=== PATIENT | male | born 1960 | race Two or more races ===

== ENCOUNTER 2016-11-05 08:24 | Inpatient (IN) | payer MEDICARE ==
[~2016-11-05] VITALS: Ht 165.1 cm; Wt 77.5 kg
[~2016-11-05 08:24] MED LIST: ATOR40TA78 PO; CARV-39 PO; COLC1TAB PO; GEMF600T3 PO; GLIM1TAB PO; LISI-170 PO; METF10002 PO
[2016-11-05] MEDS ORDERED: CIPR500T87 PO (09:16)
[2016-11-05] MEDS ORDERED: AMOX1TAB64 PO (09:16)
[2016-11-05] MEDS ORDERED: HYDR-3240 PO (09:17)
[2016-11-05] MEDS ORDERED: SODIUM CHLORIDE 0.9% 1,000 ML IV ONE (09:34)
[2016-11-05] MEDS ORDERED: SODIUM CHLORIDE FLUSH 10ML SYR IVF ONE (10:00)
[2016-11-05] MEDS ORDERED: ONDANSETRON 2MG/ML, 2ML IVPush ONE (10:00)
[2016-11-05] MEDS ORDERED: ONDANSETRON 2MG/ML, 2ML ONE ×2 (10:01→10:17)
[2016-11-05] MEDS ORDERED: HYDROmorphone 1 MG/ML, 1ML ONE ×2 (10:04→12:38)
[2016-11-05] MEDS: HYDROmorphone 1 MG/ML, 1ML IVPush PRN ×2 (10:07→12:44)
[2016-11-05 10:30] LABS: BLOOD UREA NITROGEN 37 mg/dL (7-18)
[2016-11-05 10:53] LABS: DIFF TOTAL CELLS COUNTED 100 CELL DIFF
[2016-11-05 10:54] LABS: VERIFY COUNTS? YES
[2016-11-05] MEDS ORDERED: CEFOTETAN PMX 1GM/50ML 50 ML ONE (12:10)
[2016-11-05] MEDS ORDERED: CEFOTETAN PMX 1GM/50ML 50 ML IV ONE (12:30)
[2016-11-05] MEDS ORDERED: TEMAZEPAM 15 MG CAPSULE PO PRN (14:00)
[2016-11-05] MEDS ORDERED: HYDROcodone/APAP 5/325 TABLET PO PRN (14:00)
[2016-11-05] MEDS ORDERED: ONDANSETRON 2MG/ML, 2ML IVPush PRN (14:00)
[2016-11-05] MEDS ORDERED: hydrALAzine 20 MG/ML, 1ML IVPush PRN (14:00)
[2016-11-05] MEDS ORDERED: CEFTAROLINE 600 MG in SODIUM CHLORIDE 0.9% 100 ML IV ONE (14:00)
[2016-11-05 14:27] VITALS: BP 142/79
[2016-11-05 14:51] VITALS: BP 142/79
[2016-11-05] MEDS: SODIUM CHLORIDE 0.9% 1,000 ML IV SCH (15:55)
[2016-11-05] MEDS: CLINDAMYCIN PMX 600MG/50ML 50 ML IV SCH ×2 (15:55→22:04)
[2016-11-05] MEDS: LACTOBACILLUS 1GM/ PACKET PO SCH ×2 (16:00→19:59)
[2016-11-05] MEDS: INSULIN ASPART 100 UNITS/ML, PEN SQ-INSULIN SCH ×2 (16:30→20:28)
[2016-11-05] MEDS: morphine SULFATE 10 MG/ML, 1ML IVPush PRN ×2 (16:53→17:14)
[2016-11-05] MEDS: CEFTAROLINE 400 MG in SODIUM CHLORIDE 0.9% 100 ML IV SCH (17:15)
[2016-11-05] MEDS: METOPROLOL TARTRATE 25 MG TABLET PO SCH (18:00)
[2016-11-05 19:37] VITALS: BP 129/81
[2016-11-05] MEDS: INSULIN DETEMIR 100 UNITS/ML, PEN SQ-INSULIN SCH (20:22)
[2016-11-06] MEDS: METRONIDAZOLE PMX 500MG/100ML 100 ML IVPB SCH ×4 (00:56→23:50)
[2016-11-06 00:59] VITALS: BP 115/62
[2016-11-06] MEDS: METOPROLOL TARTRATE 25 MG TABLET PO SCH ×3 (05:07→22:29)
[2016-11-06] MEDS: LACTOBACILLUS 1GM/ PACKET PO SCH ×4 (05:07→21:00)
[2016-11-06] MEDS: CEFTAROLINE 400 MG in SODIUM CHLORIDE 0.9% 100 ML IV SCH (05:18)
[2016-11-06] MEDS: morphine SULFATE 10 MG/ML, 1ML IVPush PRN (05:41)
[2016-11-06 06:01] LABS: ASPARTATE AMINO TRANSFERASE 21 U/L (15-37); BLOOD UREA NITROGEN 28 mg/dL (7-18)
[2016-11-06] MEDS: CLINDAMYCIN PMX 600MG/50ML 50 ML IV SCH ×3 (06:29→22:27)
[2016-11-06 06:31] VITALS: BP 125/79
[2016-11-06] MEDS: INSULIN ASPART 100 UNITS/ML, PEN SQ-INSULIN SCH ×4 (07:00→22:28)
[2016-11-06] MEDS: SODIUM CHLORIDE 0.9% 1,000 ML IV SCH ×2 (08:00→21:20)
[2016-11-06 13:08] VITALS: BP 139/83
[2016-11-06] MEDS ORDERED: FENTANYL PF 250 MCG/5ML ONE ×3 (14:11→14:58)
[2016-11-06] MEDS ORDERED: MIDAZOLAM 1 MG/ML, 2ML ONE ×3 (14:11→14:58)
[2016-11-06] MEDS ORDERED: BUPIVACAINE LIPOSOME/PF INFIL ONE (15:10)
[2016-11-06] MEDS ORDERED: POTASSIUM PHOSPHATE 22 MEQ in SODIUM CHLORIDE 0.9% 500 ML IV ONE (15:30)
[2016-11-06] MEDS ORDERED: PROPOFOL 10 MG/ML, 20ML ONE (15:48)
[2016-11-06] MEDS ORDERED: SUCCINYLCHOLINE 20 MG/ML, 10ML ONE (15:48)
[2016-11-06] MEDS ORDERED: ACETAMINOPHEN 325 MG TABLET PO PRN (17:00)
[2016-11-06] MEDS ORDERED: hydrALAzine 20 MG/ML, 1ML IV PRN (17:00)
[2016-11-06] MEDS ORDERED: ONDANSETRON 2MG/ML, 2ML IVPush PRN (17:00)
[2016-11-06] MEDS ORDERED: PROMETHAZINE 25 MG/ML, 1ML IV PRN (17:00)
[2016-11-06] MEDS ORDERED: MEPERIDINE/PF 25MG/0.5ML IVPush PRN (17:00)
[2016-11-06] MEDS ORDERED: LABETALOL 5MG/ML, 20ML IV PRN (17:00)
[2016-11-06] MEDS ORDERED: FENTANYL PF 100 MCG/2ML IV PRN (17:00)
[2016-11-06] MEDS: CEFTAROLINE 600 MG in SODIUM CHLORIDE 0.9% 100 ML IV SCH (17:00)
[2016-11-06] MEDS ORDERED: HYDROmorphone 1 MG/ML, 1ML IV PRN (17:00)
[2016-11-06] MEDS ORDERED: ACETAMINOPHEN 325 MG TABLET ONE (17:17)
[2016-11-06] MEDS ORDERED: FENTANYL PF 100 MCG/2ML ONE (17:17)
[2016-11-06] MEDS ORDERED: ACETAMINOPHEN 650 MG/20.3 ML UDC ONE (17:17)
[2016-11-06] MEDS ORDERED: OXYcodone 5 MG/5 ML ORAL.SOL UDC ONE (17:17)
[2016-11-06] MEDS: OXYcodone 5 MG/5 ML ORAL.SOL UDC PO PRN (17:20)
[2016-11-06] MEDS ORDERED: hydrALAzine 20 MG/ML, 1ML ONE (17:43)
[2016-11-06] MEDS: INSULIN REGULAR 100 UNITS/ML, 3ML VIAL SQ-INSULIN SCH (21:00)
[2016-11-06 22:00] VITALS: BP 138/91
[2016-11-06] MEDS: INSULIN DETEMIR 100 UNITS/ML, PEN SQ-INSULIN SCH (22:27)
[2016-11-06] MEDS: TAMSULOSIN 0.4 MG CAP.ER.24H PO SCH (22:29)
[2016-11-07 00:08] VITALS: BP 137/77
[2016-11-07 03:49] VITALS: BP 138/77
[2016-11-07] MEDS: LACTOBACILLUS 1GM/ PACKET PO SCH ×4 (05:20→20:33)
[2016-11-07] MEDS: METOPROLOL TARTRATE 25 MG TABLET PO SCH ×2 (05:20→17:24)
[2016-11-07] MEDS: CEFTAROLINE 600 MG in SODIUM CHLORIDE 0.9% 100 ML IV SCH ×2 (05:20→17:24)
[2016-11-07 05:27] LABS: BLOOD UREA NITROGEN 20 mg/dL (7-18)
[2016-11-07] MEDS: CLINDAMYCIN PMX 600MG/50ML 50 ML IV SCH ×3 (06:50→22:07)
[2016-11-07 06:51] VITALS: BP 136/73
[2016-11-07] MEDS: INSULIN REGULAR 100 UNITS/ML, 3ML VIAL SQ-INSULIN SCH ×4 (07:00→21:00)
[2016-11-07] MEDS: INSULIN ASPART 100 UNITS/ML, PEN SQ-INSULIN SCH ×4 (07:48→21:02)
[2016-11-07] MEDS: METRONIDAZOLE PMX 500MG/100ML 100 ML IVPB SCH ×2 (07:49→16:08)
[2016-11-07] MEDS: TAMSULOSIN 0.4 MG CAP.ER.24H PO SCH (07:49)
[2016-11-07] MEDS ORDERED: POTASSIUM PHOSPHATE 44 MEQ in SODIUM CHLORIDE 0.9% 500 ML IV ONE (09:30)
[2016-11-07] MEDS: INSULIN DETEMIR 100 UNITS/ML, PEN SQ-INSULIN SCH ×2 (09:43→21:01)
[2016-11-07] MEDS: LISINOPRIL 5 MG TABLET PO SCH ×2 (09:43→20:33)
[2016-11-07 13:45] VITALS: BP 119/64
[2016-11-07 13:52] LABS: HIV 1&2 ANTIBODY SCREEN Nonreactive (Nonreactive); HIV-1 p24 ANTIGEN Nonreactive (Nonreactive)
[2016-11-07 19:24] VITALS: BP 125/68
[2016-11-07] MEDS: SODIUM CHLORIDE 0.9% 1,000 ML IV SCH (21:30)
[2016-11-08 00:25] VITALS: BP 121/66
[2016-11-08] MEDS: METRONIDAZOLE PMX 500MG/100ML 100 ML IVPB SCH ×4 (00:34→23:55)
[2016-11-08 04:35] VITALS: BP 123/72
[2016-11-08] MEDS: CEFTAROLINE 600 MG in SODIUM CHLORIDE 0.9% 100 ML IV SCH ×2 (04:41→16:56)
[2016-11-08 05:54] LABS: ASPARTATE AMINO TRANSFERASE 26 U/L (15-37); BLOOD UREA NITROGEN 10 mg/dL (7-18)
[2016-11-08] MEDS: LACTOBACILLUS 1GM/ PACKET PO SCH ×4 (06:39→21:08)
[2016-11-08] MEDS: CLINDAMYCIN PMX 600MG/50ML 50 ML IV SCH (06:39)
[2016-11-08] MEDS: METOPROLOL TARTRATE 25 MG TABLET PO SCH ×2 (06:40→18:10)
[2016-11-08 06:45] LABS: DIFF TOTAL CELLS COUNTED 100 CELL DIFF
[2016-11-08 06:49] LABS: VERIFY COUNTS? YES
[2016-11-08] MEDS: INSULIN ASPART 100 UNITS/ML, PEN SQ-INSULIN SCH (06:55)
[2016-11-08] MEDS: INSULIN REGULAR 100 UNITS/ML, 3ML VIAL SQ-INSULIN SCH ×4 (06:55→21:27)
[2016-11-08 07:33] VITALS: BP 136/76
[2016-11-08] MEDS: TAMSULOSIN 0.4 MG CAP.ER.24H PO SCH (08:25)
[2016-11-08] MEDS: LISINOPRIL 5 MG TABLET PO SCH (08:25)
[2016-11-08] MEDS: INSULIN DETEMIR 100 UNITS/ML, PEN SQ-INSULIN SCH ×2 (08:26→21:27)
[2016-11-08] MEDS: SODIUM CHLORIDE 0.9% 1,000 ML IV SCH (10:40)
[2016-11-08 12:57] VITALS: BP 156/80
[2016-11-08] MEDS ORDERED: MAGNESIUM SULFATE PMX 2GM/50ML 50 ML IV ONE (16:30)
[2016-11-08 19:35] VITALS: BP 131/73
[2016-11-08] MEDS: LISINOPRIL 20 MG TABLET PO SCH (21:08)
[2016-11-09 02:12] VITALS: BP 142/85
[2016-11-09] MEDS: CEFTAROLINE 600 MG in SODIUM CHLORIDE 0.9% 100 ML IV SCH (05:34)
[2016-11-09] MEDS: SODIUM CHLORIDE 0.9% 1,000 ML IV SCH ×3 (05:34→22:22)
[2016-11-09] MEDS: INSULIN REGULAR 100 UNITS/ML, 3ML VIAL SQ-INSULIN SCH ×4 (05:47→22:23)
[2016-11-09] MEDS: LACTOBACILLUS 1GM/ PACKET PO SCH ×4 (06:30→22:08)
[2016-11-09] MEDS: METOPROLOL TARTRATE 25 MG TABLET PO SCH ×2 (06:30→18:07)
[2016-11-09 07:17] VITALS: BP 160/94
[2016-11-09 07:57] VITALS: BP 160/104
[2016-11-09] MEDS: LISINOPRIL 20 MG TABLET PO SCH ×2 (07:57→22:08)
[2016-11-09] MEDS: TAMSULOSIN 0.4 MG CAP.ER.24H PO SCH (07:57)
[2016-11-09] MEDS: METRONIDAZOLE PMX 500MG/100ML 100 ML IVPB SCH ×2 (07:57→16:21)
[2016-11-09] MEDS: INSULIN DETEMIR 100 UNITS/ML, PEN SQ-INSULIN SCH ×2 (07:57→22:22)
[2016-11-09] MEDS ORDERED: DIPHENOXYLATE/ATROPINE TABLET PO SCH (10:00)
[2016-11-09] MEDS: CEFTRIAXONE 2,000 MG in DEXTROSE 5% 50 ML IV SCH (11:06)
[2016-11-09] MEDS: DIPHENOXYLATE/ATROPINE TABLET PO SCH (11:15)
[2016-11-09 13:19] VITALS: BP 143/75
[2016-11-09 19:55] VITALS: BP 144/77
[2016-11-09] MEDS: AMLODIPINE 5 MG TABLET PO SCH (22:08)
[2016-11-10] MEDS: METRONIDAZOLE PMX 500MG/100ML 100 ML IVPB SCH ×3 (00:17→16:20)
[2016-11-10 03:52] VITALS: BP 115/70
[2016-11-10 05:35] LABS: BLOOD UREA NITROGEN 9 mg/dL (7-18)
[2016-11-10 05:47] LABS: ASPARTATE AMINO TRANSFERASE 39 U/L (15-37)
[2016-11-10] MEDS: LACTOBACILLUS 1GM/ PACKET PO SCH ×4 (06:25→20:09)
[2016-11-10] MEDS: METOPROLOL TARTRATE 25 MG TABLET PO SCH ×2 (06:25→17:59)
[2016-11-10] MEDS: INSULIN REGULAR 100 UNITS/ML, 3ML VIAL SQ-INSULIN SCH ×4 (06:28→20:11)
[2016-11-10 07:20] VITALS: BP 136/81
[2016-11-10] MEDS: DIPHENOXYLATE/ATROPINE TABLET PO SCH (09:08)
[2016-11-10] MEDS: TAMSULOSIN 0.4 MG CAP.ER.24H PO SCH (09:08)
[2016-11-10] MEDS: LISINOPRIL 20 MG TABLET PO SCH ×2 (09:08→20:11)
[2016-11-10] MEDS: AMLODIPINE 5 MG TABLET PO SCH ×2 (09:08→20:11)
[2016-11-10] MEDS: INSULIN DETEMIR 100 UNITS/ML, PEN SQ-INSULIN SCH ×2 (09:09→20:10)
[2016-11-10] MEDS: CEFTRIAXONE 2,000 MG in DEXTROSE 5% 50 ML IV SCH (10:26)
[2016-11-10] MEDS ORDERED: POTASSIUM CHLORIDE 40 MEQ in SODIUM CHLORIDE 0.9% 500 ML IV ONE (11:00)
[2016-11-10 15:01] VITALS: BP 112/66
[2016-11-10 18:53] VITALS: BP 118/73
[2016-11-10] MEDS: SODIUM CHLORIDE 0.9% 1,000 ML IV SCH (20:09)
[2016-11-11] MEDS: METRONIDAZOLE PMX 500MG/100ML 100 ML IVPB SCH ×3 (01:01→16:52)
[2016-11-11 01:58] VITALS: BP 128/75
[2016-11-11 05:23] LABS: BLOOD UREA NITROGEN 12 mg/dL (7-18)
[2016-11-11] MEDS: LACTOBACILLUS 1GM/ PACKET PO SCH ×4 (06:44→21:25)
[2016-11-11] MEDS: METOPROLOL TARTRATE 25 MG TABLET PO SCH ×2 (06:44→18:06)
[2016-11-11] MEDS: INSULIN REGULAR 100 UNITS/ML, 3ML VIAL SQ-INSULIN SCH ×4 (06:46→21:26)
[2016-11-11 07:45] VITALS: BP 127/74
[2016-11-11] MEDS: DIPHENOXYLATE/ATROPINE TABLET PO SCH (08:00)
[2016-11-11] MEDS: TAMSULOSIN 0.4 MG CAP.ER.24H PO SCH (08:00)
[2016-11-11] MEDS: AMLODIPINE 5 MG TABLET PO SCH ×2 (08:01→20:33)
[2016-11-11] MEDS: LISINOPRIL 20 MG TABLET PO SCH ×2 (08:01→21:31)
[2016-11-11] MEDS: INSULIN DETEMIR 100 UNITS/ML, PEN SQ-INSULIN SCH ×2 (08:03→21:26)
[2016-11-11] MEDS: SODIUM CHLORIDE 0.9% 1,000 ML IV SCH (08:04)
[2016-11-11] MEDS: CEFTRIAXONE 2,000 MG in DEXTROSE 5% 50 ML IV SCH (10:48)
[2016-11-11] MEDS ORDERED: MAGNESIUM SULFATE PMX 4GM/100M 100 ML IV ONE (11:00)
[2016-11-11 13:39] VITALS: BP 111/69
[2016-11-11] MEDS: POTASSIUM PHOSPHATE 44 MEQ in SODIUM CHLORIDE 0.9% 500 ML IV ONE ×2 (17:33→18:06)
[2016-11-11 20:00] VITALS: BP 115/71
[2016-11-12] MEDS: METRONIDAZOLE PMX 500MG/100ML 100 ML IVPB SCH ×3 (01:04→17:27)
[2016-11-12 03:28] VITALS: BP 130/74
[2016-11-12 05:13] LABS: BLOOD UREA NITROGEN 14 mg/dL (7-18)
[2016-11-12] MEDS: METOPROLOL TARTRATE 25 MG TABLET PO SCH ×2 (05:26→18:27)
[2016-11-12] MEDS: LACTOBACILLUS 1GM/ PACKET PO SCH ×4 (05:26→21:01)
[2016-11-12] MEDS: INSULIN REGULAR 100 UNITS/ML, 3ML VIAL SQ-INSULIN SCH ×4 (07:00→21:09)
[2016-11-12 07:26] VITALS: BP 131/80
[2016-11-12] MEDS: DIPHENOXYLATE/ATROPINE TABLET PO SCH (08:50)
[2016-11-12] MEDS: TAMSULOSIN 0.4 MG CAP.ER.24H PO SCH (08:50)
[2016-11-12] MEDS: LISINOPRIL 20 MG TABLET PO SCH ×2 (08:51→21:01)
[2016-11-12] MEDS: FINASTERIDE 5 MG TABLET PO SCH (08:51)
[2016-11-12] MEDS: AMLODIPINE 5 MG TABLET PO SCH ×2 (08:51→21:01)
[2016-11-12] MEDS: INSULIN DETEMIR 100 UNITS/ML, PEN SQ-INSULIN SCH ×2 (09:01→21:08)
[2016-11-12] MEDS: SODIUM CHLORIDE 0.9% 1,000 ML IV SCH (09:01)
[2016-11-12] MEDS: CEFTRIAXONE 2,000 MG in DEXTROSE 5% 50 ML IV SCH (10:09)
[2016-11-12 14:00] VITALS: BP 133/79
[2016-11-12 20:00] VITALS: BP 132/82
[2016-11-13] MEDS: METRONIDAZOLE PMX 500MG/100ML 100 ML IVPB SCH ×2 (00:58→09:00)
[2016-11-13 02:07] VITALS: BP 121/77
[2016-11-13] MEDS: SODIUM CHLORIDE 0.9% 1,000 ML IV SCH ×2 (04:43→17:32)
[2016-11-13] MEDS: INSULIN REGULAR 100 UNITS/ML, 3ML VIAL SQ-INSULIN SCH ×4 (06:07→22:05)
[2016-11-13] MEDS: METOPROLOL TARTRATE 25 MG TABLET PO SCH ×2 (06:07→17:37)
[2016-11-13] MEDS: LACTOBACILLUS 1GM/ PACKET PO SCH ×4 (06:07→21:16)
[2016-11-13 06:50] VITALS: BP 130/79
[2016-11-13] MEDS: FINASTERIDE 5 MG TABLET PO SCH (09:22)
[2016-11-13] MEDS: LISINOPRIL 20 MG TABLET PO SCH ×2 (09:22→21:15)
[2016-11-13] MEDS: AMLODIPINE 5 MG TABLET PO SCH ×2 (09:22→21:15)
[2016-11-13] MEDS: TAMSULOSIN 0.4 MG CAP.ER.24H PO SCH (09:22)
[2016-11-13] MEDS: DIPHENOXYLATE/ATROPINE TABLET PO SCH (09:22)
[2016-11-13] MEDS: INSULIN DETEMIR 100 UNITS/ML, PEN SQ-INSULIN SCH ×2 (09:24→22:05)
[2016-11-13] MEDS: metroNIDAZOLE 500 MG TABLET PO SCH ×2 (09:29→17:36)
[2016-11-13] MEDS: CEFTRIAXONE 2,000 MG in DEXTROSE 5% 50 ML IV SCH (10:17)
[2016-11-13 12:40] VITALS: BP 125/79
[2016-11-14 01:21] VITALS: BP 124/79
[2016-11-14] MEDS: metroNIDAZOLE 500 MG TABLET PO SCH ×2 (01:49→07:59)
[2016-11-14] MEDS: LACTOBACILLUS 1GM/ PACKET PO SCH ×2 (05:57→12:27)
[2016-11-14] MEDS: METOPROLOL TARTRATE 25 MG TABLET PO SCH (05:57)
[2016-11-14 06:35] VITALS: BP 142/87
[2016-11-14] MEDS: TAMSULOSIN 0.4 MG CAP.ER.24H PO SCH (07:59)
[2016-11-14] MEDS: AMLODIPINE 5 MG TABLET PO SCH (08:00)
[2016-11-14] MEDS: DIPHENOXYLATE/ATROPINE TABLET PO SCH (08:00)
[2016-11-14] MEDS: FINASTERIDE 5 MG TABLET PO SCH (08:00)
[2016-11-14] MEDS: LISINOPRIL 20 MG TABLET PO SCH (08:00)
[2016-11-14] MEDS: INSULIN REGULAR 100 UNITS/ML, 3ML VIAL SQ-INSULIN SCH ×2 (08:01→12:27)
[2016-11-14] MEDS: INSULIN DETEMIR 100 UNITS/ML, PEN SQ-INSULIN SCH (08:05)
[2016-11-14] MEDS ORDERED: CEFTRIAXONE PMX 2GM/50ML 50 ML IVPB SCH (10:00)
[2016-11-14] MEDS ORDERED: ACID1GRA2 PO (12:49)
[2016-11-14] MEDS ORDERED: AMLO5TAB2 PO (12:49)
[2016-11-14] MEDS ORDERED: LISI-170 PO (12:49)
[2016-11-14] MEDS ORDERED: FINA5TAB4 PO (12:49)
[2016-11-14] MEDS ORDERED: INSU100I28 SQ-INSULIN ×2 (12:49)
[2016-11-14] MEDS ORDERED: TAMS-11 PO (12:49)
[2016-11-14] MEDS ORDERED: METO25TA35 PO (12:49)
[2016-11-14] MEDS ORDERED: TRAM50TA2 PO (12:49)
[2016-11-14] MEDS ORDERED: METR500T PO (12:52)
[2016-11-14] MEDS ORDERED: CEFT1FRO2 IV (12:53)
[2016-11-14 12:55] VITALS: BP 107/63
== END 2016-11-14 14:45 | disposition home or self-care (01) | DRG 853 ==
LOC: ED 09:16 → EDIP 13:03 → SUATTDRO 13:07 → 3NE 14:23 → 4NOR 11-06 18:17 → DCLOUNGE 11-14 14:02
PROVIDERS: ADMIT Internal Medicine; ATTEND Internal Medicine
PROC: 0T9B70Z Drainage of Bladder with Drainage Device, Via Natural or Artificial Opening (ICD-10-PCS; 2016-11-05)
PROC: 0DBP8ZX Excision of Rectum, Via Natural or Artificial Opening Endoscopic, Diagnostic (ICD-10-PCS; 2016-11-06)
PROC: 0D9Q0ZZ Drainage of Anus, Open Approach (ICD-10-PCS; principal; 2016-11-06 16:30)
PROC: 02HV33Z Insertion of Infusion Device into Superior Vena Cava, Percutaneous Approach (ICD-10-PCS; 2016-11-13)
PROC: B5181ZA Fluoroscopy of Superior Vena Cava using Low Osmolar Contrast, Guidance (ICD-10-PCS; 2016-11-13)
DX: A41.9 Sepsis, unspecified organism (principal); E43 Unspecified severe protein-calorie malnutrition; E11.00 Type 2 diabetes mellitus with hyperosmolarity without nonketotic hyperglycemic-hyperosmolar coma (NKHHC); K61.0 Anal abscess; E87.1 Hypo-osmolality and hyponatremia; N13.30 Unspecified hydronephrosis; N17.9 Acute kidney failure, unspecified; I13.0 Hypertensive heart and chronic kidney disease with heart failure and stage 1 through stage 4 chronic kidney disease, or unspecified chronic kidney disease; E87.0 Hyperosmolality and hypernatremia; K50.90 Crohn's disease, unspecified, without complications; K51.90 Ulcerative colitis, unspecified, without complications; K62.89 Other specified diseases of anus and rectum; R65.10 Systemic inflammatory response syndrome (SIRS) of non-infectious origin without acute organ dysfunction; D63.8 Anemia in other chronic diseases classified elsewhere; E11.22 Type 2 diabetes mellitus with diabetic chronic kidney disease; E11.65 Type 2 diabetes mellitus with hyperglycemia; E78.5 Hyperlipidemia, unspecified; E83.42 Hypomagnesemia; E87.6 Hypokalemia; I50.9 Heart failure, unspecified; K76.0 Fatty (change of) liver, not elsewhere classified; M06.9 Rheumatoid arthritis, unspecified; M10.9 Gout, unspecified; B96.1 Klebsiella pneumoniae [K. pneumoniae] as the cause of diseases classified elsewhere; N18.3 Chronic kidney disease, stage 3 (moderate); Z82.49 Family history of ischemic heart disease and other diseases of the circulatory system; Z87.891 Personal history of nicotine dependence; Z88.5 Allergy status to narcotic agent; Z88.8 Allergy status to other drugs, medicaments and biological substances; Z68.24 Body mass index [BMI] 24.0-24.9, adult; Z82.61 Family history of arthritis
CPT/HCPCS: 36415; 36569; 74176; 76770; 76937; 77001; 80048; 80053; 82040; 82962; 83036; 83605; 83735; 84100; 84443; 85025; 85610; 85651; 85730; 86140; 86592; 86703; 87040; 87070; 87075; 87077; 87086; 87106; 87186; 87205; 87252; 87254; 87324; 87491; 87591; 87899; 88304; 93005; 96361; 96365; 96375; 96376; C9290; J0696; J0712; J1170; J1815; J2250; J2405; J2704; J3010; J3480; C1751; G0435; J0330; J0360; J2270; J3475; J7030; J7040; S0074

== ENCOUNTER → 2018-12-15 | Outpatient (CLI) | payer MEDICARE ==
[~2018-12-15] MED LIST changes: +ACID1GRA3 PO; +AMLO-150 PO; +AMOX1TAB64 PO; +CEFT1FRO2 IV; +CIPR500T87 PO; +FINA5TAB4 PO; -GEMF600T3 PO; +GEMF600T8 PO; +HYDR-3240 PO; +INSU100I28 SQ-INSULIN; +METO25TA35 PO; +METR500T PO; +TAMS-11 PO; +TRAM50TA2 PO
== END | disposition home or self-care (01) ==
LOC: CFH 06:44
PROVIDERS: ATTEND Internal Medicine Cardiovascular Disease
DX: I34.0 Nonrheumatic mitral (valve) insufficiency (principal); I11.0 Hypertensive heart disease with heart failure; I50.9 Heart failure, unspecified
CPT/HCPCS: 93306

== ENCOUNTER 2021-01-12 03:50 | Observation (INO) | payer MEDICARE ==
[~2021-01-12] VITALS: Ht 165.1 cm; Wt 69.0 kg
[~2021-01-12 03:50] MED LIST changes: +GEMF-31 PO; -GEMF600T8 PO; +HYDR-2214 PO; -HYDR-3240 PO
[2021-01-12 05:08] LABS: BASOPHILS % (AUTO) 0 % (0-1); EOSINOPHILS % (AUTO) 0 % (1-7); LYMPHOCYTES % (AUTO) 16 % (22-44); MEAN CORPUSCULAR HGB CONC 33.5 g/dL (33.2-36.2); MEAN PLATELET VOLUME 8.2 fL (7.4-10.4); MONOCYTES % (AUTO) 4 % (2-9); NEUTROPHILS % (AUTO) 79 % (42-75); PLATELET COUNT 259 x10^3/uL (130-400); RED BLOOD COUNT 4.33 x10^6/uL (4.38-5.82); RED CELL DISTRIBUTION WIDTH 12.5 % (9.4-14.8)
[2021-01-12 05:17] LABS: ALANINE AMINOTRANSFERASE 30 U/L (12-78); ALBUMIN 3.6 g/dL (3.4-5.0); ANION GAP 17 mmol/L (5-15); CALCIUM 8.5 mg/dL (8.5-10.1); CHLORIDE 103 mmol/L (98-107); CREATININE 1.48 mg/dL (0.7-1.3)
[2021-01-12 05:22] LABS: ALKALINE PHOSPHATASE 95 U/L (45-117); BILIRUBIN,TOTAL 0.3 mg/dL (0.2-1.0); TROPONIN I 0.054 ng/mL (0.000-0.045)
[2021-01-12] MEDS ORDERED: DEXTROSE 50%, 50ML SYRINGE ONE (05:32)
--- NOTE | 2021-01-12 05:43 | NUR ---
IV established, pt given amp of D50 for BGL 26. Pt given PO juice and crackers by MD Abbasi. Tolerating well. Addendum: 01/12/21 at 0543 by RITA MD Rand
[2021-01-12] MEDS ORDERED: DEXTROSE 50%, 50ML SYRINGE IVPush ONE (06:00)
--- NOTE | 2021-01-12 06:40 | NUR ---
Repeat BGL 212
--- NOTE | 2021-01-12 06:52 | NUR ---
Report given to AFSANEH Kramer no further questions at this time.
--- NOTE | 2021-01-12 06:56 | NUR ---
ASSUMING CARE OF PT AFTER BEDSIDE REPORT. PT RESTING IN BED. FAMILY AT BEDSIDE. NADN. GUIDRY.
--- NOTE | 2021-01-12 07:55 | NUR ---
DR. CLOUD TO BEDSIDE.
[2021-01-12 08:29] LABS: TROPONIN I 0.132 ng/mL (0.000-0.045)
--- NOTE | 2021-01-12 08:44 | NUR ---
TROP OF 0.[address] CLOUD.
--- NOTE | 2021-01-12 08:55 | NUR ---
RECEIVED REPORT FROM AFSANEH MARTIN. PT RESTING ON PATTI. NADN. GUIDRY.
[2021-01-12] MEDS ORDERED: ONDANSETRON 2MG/ML, 2ML IVPush PRN (09:00)
[2021-01-12] MEDS ORDERED: GUAIFENESIN/DM 200-20MG, 10ML UDC PO PRN (09:00)
[2021-01-12] MEDS ORDERED: BACLOFEN 10 MG TABLET PO PRN (09:00)
[2021-01-12] MEDS ORDERED: ONDANSETRON ODT 4 MG PO PRN (09:00)
[2021-01-12] MEDS ORDERED: ACETAMINOPHEN 325 MG TABLET PO PRN (09:00)
[2021-01-12] MEDS ORDERED: BUTALB/APAP/CAFFEINE 50MG/325MG/40MG PO PRN ×2 (09:00)
--- NOTE | 2021-01-12 09:47 | NUR ---
PT RESTING ON GURNEY. NADN. GUIDRY.
--- NOTE | 2021-01-12 09:56 | NUR ---
REPORT GIVEN TO VICKIE GONZALEZ RN. ALL QUESTIONS ANSWERED. AWAITING PT TRANSPORT.
--- NOTE | 2021-01-12 10:36 | NUR ---
PT RESTING ON GURNEY. NADN. GUIDRY.
[2021-01-12 10:49] VITALS: BP 173/96
[2021-01-12] MEDS: hydrALAzine 20 MG/ML, 1ML IVPush PRN ×2 (11:05→15:19)
[2021-01-12] MEDS: SENNA/DOCUSATE TABLET PO SCH (11:05)
[2021-01-12 11:35] VITALS: BP 173/96
[2021-01-12 12:24] LABS: TROPONIN I 0.279 ng/mL (0.000-0.045)
[2021-01-12 12:44] VITALS: BP 175/99
[2021-01-12] MEDS ORDERED: SODIUM CHLORIDE 0.9% 1,000ML IV ONE (14:30)
[2021-01-12] MEDS: INSULIN LISPRO 100 UNITS/ML, PEN SQ-INSULIN SCH ×2 (16:00→20:07)
[2021-01-12 16:11] LABS: TROPONIN I 0.422 ng/mL (0.000-0.045)
[2021-01-12 18:15] VITALS: BP 181/86
[2021-01-12] MEDS ORDERED: LISI20TA21 PO (18:15)
[2021-01-12] MEDS ORDERED: CELE-47 PO (18:15)
[2021-01-12] MEDS ORDERED: METF10007 PO (18:15)
[2021-01-12] MEDS ORDERED: PROB500T22 PO (18:15)
[2021-01-12] MEDS ORDERED: ROSU20TA29 PO (18:15)
[2021-01-12] MEDS ORDERED: CARV12.52 PO (18:15)
[2021-01-12] MEDS ORDERED: ENALAPRILAT 1.25 MG/ML, 1ML ONE ×2 (18:19→18:52)
[2021-01-12] MEDS: ENALAPRILAT 1.25 MG/ML, 2ML IVPush PRN ×2 (18:22→18:55)
[2021-01-12 18:54] VITALS: BP 173/91
[2021-01-12 18:55] LABS: MICROSCOPIC NOT IND
[2021-01-12 19:26] VITALS: BP 160/88
[2021-01-12] MEDS ORDERED: MELATONIN 5 MG TABLET PO SCH (21:00)
[2021-01-13 00:30] VITALS: BP 168/93
[2021-01-13 05:05] LABS: ALANINE AMINOTRANSFERASE 28 U/L (12-78); ALBUMIN 3.2 g/dL (3.4-5.0); ANION GAP 6 mmol/L (5-15); BASOPHILS % (AUTO) 0 % (0-1); CALCIUM 8.8 mg/dL (8.5-10.1); CHLORIDE 109 mmol/L (98-107); CREATININE 1.41 mg/dL (0.7-1.3); EOSINOPHILS % (AUTO) 1 % (1-7); LYMPHOCYTES % (AUTO) 19 % (22-44); MEAN CORPUSCULAR HEMOGLOBIN 34.2 pg (27.5-34.5); MEAN CORPUSCULAR HGB CONC 34.8 g/dL (33.2-36.2); MEAN PLATELET VOLUME 8.4 fL (7.4-10.4); MONOCYTES % (AUTO) 8 % (2-9); NEUTROPHILS % (AUTO) 72 % (42-75); PLATELET COUNT 207 x10^3/uL (130-400); RED BLOOD COUNT 4.44 x10^6/uL (4.38-5.82); RED CELL DISTRIBUTION WIDTH 12.7 % (9.4-14.8)
[2021-01-13 05:07] LABS: ALKALINE PHOSPHATASE 87 U/L (45-117); BILIRUBIN,TOTAL 0.8 mg/dL (0.2-1.0); TOTAL PROTEIN 7.3 g/dL (6.4-8.2)
[2021-01-13] MEDS: INSULIN LISPRO 100 UNITS/ML, PEN SQ-INSULIN SCH ×2 (07:00→11:48)
[2021-01-13 07:05] VITALS: BP 176/96
[2021-01-13] MEDS ORDERED: ENALAPRILAT 1.25 MG/ML, 1ML ONE (07:30)
[2021-01-13] MEDS: SENNA/DOCUSATE TABLET PO SCH (07:37)
[2021-01-13] MEDS: ENALAPRILAT 1.25 MG/ML, 2ML IVPush PRN ×2 (07:39→08:25)
[2021-01-13 08:24] VITALS: BP 180/96
[2021-01-13 08:38] LABS: TROPONIN I 0.382 ng/mL (0.000-0.045)
[2021-01-13] MEDS ORDERED: REGADENOSON 0.4 MG/5 ML SYRINGE ONE (09:14)
[2021-01-13] MEDS ORDERED: TAMSULOSIN 0.4 MG CAP.ER.24H PO SCH (11:30)
[2021-01-13] MEDS ORDERED: LISINOPRIL 20 MG TABLET PO SCH (11:30)
[2021-01-13] MEDS ORDERED: AMLODIPINE 5 MG TABLET PO SCH (11:30)
[2021-01-13] MEDS ORDERED: CARVEDILOL 12.5 MG TABLET PO SCH (11:30)
[2021-01-13] MEDS ORDERED: FINASTERIDE 5 MG TABLET PO SCH (11:30)
[2021-01-13 12:14] VITALS: BP 174/95
[2021-01-13 13:07] LABS: TROPONIN I 0.208 ng/mL (0.000-0.045)
[2021-01-13 16:11] VITALS: BP 157/87
[2021-01-13] MEDS ORDERED: AMLO-150 PO (17:08)
[2021-01-13] MEDS ORDERED: METOPROLOL TARTRATE 25 MG TAB PO SCH (18:00)
== END 2021-01-13 16:44 | disposition home or self-care (01) ==
LOC: ED 06:06 → EDIP 06:41 → INTOOBSV 06:41 → 4EST 09:58
PROVIDERS: ADMIT Family Medicine; ATTEND Hospitalist
DX: E11.649 Type 2 diabetes mellitus with hypoglycemia without coma (principal); R79.89 Other specified abnormal findings of blood chemistry; I13.0 Hypertensive heart and chronic kidney disease with heart failure and stage 1 through stage 4 chronic kidney disease, or unspecified chronic kidney disease; E11.22 Type 2 diabetes mellitus with diabetic chronic kidney disease; I50.20 Unspecified systolic (congestive) heart failure; N18.9 Chronic kidney disease, unspecified; N17.9 Acute kidney failure, unspecified; M10.9 Gout, unspecified; E78.5 Hyperlipidemia, unspecified; D72.829 Elevated white blood cell count, unspecified; D75.89 Other specified diseases of blood and blood-forming organs; E87.1 Hypo-osmolality and hyponatremia; E86.0 Dehydration; M06.9 Rheumatoid arthritis, unspecified; I25.2 Old myocardial infarction; Z79.899 Other long term (current) drug therapy; Z79.84 Long term (current) use of oral hypoglycemic drugs
CPT/HCPCS: 36415; 71045; 78452; 80053; 81003; 82962; 83036; 83735; 83880; 84100; 84484; 85025; 93005; 93017; 96361; 96374; 96375; 96376; 99285; A9502; G0378; J0360; J1815; J2785; J7030